=== PATIENT | male | born 1995 | race Caucasian/White ===

== ENCOUNTER 2017-08-11 07:58 | Inpatient (IN) | payer BC ==
--- NOTE | 2017-08-11 08:33 | EDM.PDOC ---
ED HPI GENERAL MEDICAL PROBLEM - General Chief Complaint: Abdominal Pain Stated Complaint: ABD PAIN Time Seen by Provider: 08/11/17 08:25 Source of Information: Reports: Patient, RN Notes Reviewed History Limitations: Reports: No Limitations - History of Present Illness INITIAL COMMENTS - FREE TEXT/NARRATIVE: 21-year-old gentleman presents to the emergency department today complaint of abdominal pain, he states the abdominal pain started last night he was able to finish his shift at work but had to leave early. Pain initially started in the epigastric region now it is migrating down to the right lower quadrant. Has had waves of nausea as well as waves of pain. No history of abdominal surgeries no fevers states he has had regular bowel movements ABDOMINAL Pain Score (Numeric/FACES): 7 - Related Data Allergies Allergy/AdvReac Type Severity Reaction Status Date / Time No Known Allergies Allergy Verified 08/11/17 08:12 Home Meds: Home Meds Naproxen Sodium 220 mg PO ASDIRECTED PRN 05/25/15 [History] Past Medical History Gastrointestinal History: Reports: GERD, Other (See Below) Other Gastrointestinal History: cyst on tail bone removed. ulcer Musculoskeletal History: Reports: Other (See Below) Other Musculoskeletal History: broken - Past Surgical History HEENT Surgical History: Reports: Oral Surgery Social & Family History - Family History Family Medical History: Noncontributory - Tobacco Use Smoking Status *Q: Current Every Day Smoker Years of Tobacco use: 4 Packs/Tins Daily: 0.5 - Caffeine Use Caffeine Use: Reports: Coffee, Energy Drinks, Soda - Recreational Drug Use Recreational Drug Use: No ED ROS GENERAL - Review of Systems Review Of Systems: See Below Constitutional: Denies: Fever, Chills Respiratory: Reports: No Symptoms Cardiovascular: Reports: No Symptoms GI/Abdominal: Reports: Abdominal Pain, Flatus, Nausea. Denies: Constipation, Diarrhea, Vomiting : Reports: No Symptoms ED EXAM, GI/ABD - Physical Exam Exam: See Below Exam Limited By: No Limitations General Appearance: Alert, WD/WN, No Apparent Distress Respiratory/Chest: No Respiratory Distress, Lungs Clear, Normal Breath Sounds, No Accessory Muscle Use, Chest Non-Tender Cardiovascular: Regular Rate, Rhythm, No Murmur GI/Abdominal Exam: Normal Bowel Sounds, Soft, No Organomegaly, No Distention, No Abnormal Bruit, No Mass, Tender (Right lower quadrant) Course - Vital Signs Last Recorded V/S: Last Vital Signs Temp 97.3 F 08/11/17 08:11 Pulse 103 H 08/11/17 08:11 Resp 14 08/11/17 08:11 BP 145/82 H 08/11/17 08:11 Pulse Ox 100 08/11/17 08:11 - Orders/Labs/Meds Orders: Active Orders 24 hr Category Date Time Status Peripheral IV Care [RC] . DIRECTED Care 08/11/17 08:53 Active UA W/MICROSCOPIC [URIN] Urgent Lab 08/11/17 08:52 Ordered HYDROmorphone/Normal Saline [Dilaudid FLEET SALESPERSON 15 MG in NS Med 08/11/17 11:30 Active 30 ML] 15 mg IV ASDIRECTED Iopamidol [Isovue-300 (61%)] Med 08/11/17 10:00 Active 132 ml IV . DIRECTED Lactated Ringers [Ringers, Lactated] 1,000 ml Med 08/11/17 09:00 Active IV ASDIRECTED Lactated Ringers [Ringers, Lactated] 1,000 ml Med 08/11/17 11:28 Active IV BOLUS Sodium Chloride 0.9% [Saline Flush] Med 08/11/17 08:52 Active 10 ml FLUSH ASDIRECTED PRN Sodium Chloride 0.9% [Saline Flush] Med 08/11/17 09:52 Active 10 ml FLUSH ONETIME PRN Peripheral IV Insertion Adult [OM.PC] Urgent Oth 08/11/17 08:52 Ordered Medication Orders Hydromorphone HCl (Dilaudid Framing Mechanic 15 Mg In Ns 30 Ml) 15 mg IV ASDIRECTED BOBBY; Protocol Lactated Ringer's (Ringers, Lactated) 1,000 mls @ 500 mls/hr IV ASDIRECTED BOBBY Last Admin: 08/11/17 09:03 Dose: 500 mls/hr Lactated Ringer's (Ringers, Lactated) 1,000 mls @ 250 mls/hr IV BOLUS ONE Stop: 08/11/17 15:27 Last Admin: 08/11/17 11:34 Dose: 250 mls/hr Iopamidol (Isovue-300 (61%)) 132 ml IV . DIRECTED BOBBY Last Admin: 08/11/17 09:58 Dose: 150 ml Sodium Chloride (Saline Flush) 10 ml FLUSH ASDIRECTED PRN PRN Reason: Keep Vein Open Last Admin: 08/11/17 09:03 Dose: 10 ml Sodium Chloride (Saline Flush) 10 ml FLUSH ONETIME PRN PRN Reason: PER RADIOLOGY PROTOCOL Last Admin: 08/11/17 09:58 Dose: 10 ml Labs: Laboratory Tests 08/11/17 08/11/17 08/11/17 Range/Units 08:52 09:01 09:01 WBC 10.8 (4.5-11.0) K/uL RBC 4.66 (4.30-5.90) M/uL Hgb 13.9 (12.0-15.0) g/dL Hct 38.6 L (40.0-54.0) % MCV 83 (80-98) fL MCH 30 (27-31) pg MCHC 36 (32-36) % Plt Count 247 (150-400) K/uL Neut % (Auto) 72 H (36-66) % Lymph % (Auto) 18 L (24-44) % Walsh % (Auto) 9 H (2-6) % Eos % (Auto) 0 L (2-4) % Baso % (Auto) 0 (0-1) % Sodium 140 (140-148) mmol/L Potassium 3.4 L (3.6-5.2) mmol/L Chloride 105 (100-108) mmol/L Carbon Dioxide 22 (21-32) mmol/L Anion Gap 16.4 H (5.0-14.0) mmol/L BUN 8 (7-18) mg/dL Creatinine 1.0 (0.8-1.3) mg/dL Est Cr Clr Drug Dosing 128.26 mL/min Estimated GFR (MDRD) > 60 (>60) Glucose 100 (74-106) mg/dL Calcium 9.0 (8.5-10.1) mg/dL Total Bilirubin 1.1 H (0.2-1.0) mg/dL AST 20 (15-37) U/L ALT 25 (12-78) U/L Alkaline Phosphatase 83 (46-116) U/L Total Protein 7.6 (6.4-8.2) g/dL Albumin 4.5 (3.4-5.0) g/dL Globulin 3.1 (2.3-3.5) g/dL Albumin/Globulin Ratio 1.5 (1.2-2.2) Lipase 68 L (73-393) U/L Urine Color Yellow Urine Appearance Clear Urine pH 9.0 H (4.5-8.0) Ur Specific [place] 1.010 (1.008-1.030) Urine Protein Negative (NEGATIVE) mg/dL Urine Glucose (UA) Normal (NEGATIVE) mg/dL Urine Ketones 15 H (NEGATIVE) mg/dL Urine Occult Blood Negative (NEGATIVE) Urine Nitrite Negative (NEGAITVE) Urine Bilirubin Negative (NEGATIVE) Urine Urobilinogen Normal (NORMAL) mg/dL Ur Leukocyte Esterase Negative (NEGATIVE) Urine RBC Not seen (0-5) Urine WBC Not seen (0-5) Ur Epithelial Cells Not seen Amorphous Sediment Not seen Urine Bacteria Not seen Urine Mucus Few Meds: Medications Generic Name Dose Route Start Last Admin Trade Name Freq PRN Reason Stop Dose Admin Hydromorphone HCl 15 mg 08/11/17 11:30 Dilaudid Framing Mechanic 15 Mg In Ns 30 Ml IV ASDIRECTED BOBBY Protocol Lactated Ringer's 1,000 mls @ 500 mls/hr 08/11/17 09:00 08/11/17 09:03 Ringers, Lactated IV 500 mls/hr ASDIRECTED BOBBY Administration Lactated Ringer's 1,000 mls @ 250 mls/hr 08/11/17 11:28 08/11/17 11:34 Ringers, Lactated IV 08/11/17 15:27 250 mls/hr BOLUS ONE Administration Iopamidol 132 ml 08/11/17 10:00 08/11/17 09:58 Isovue-300 (61%) IV 150 ml . DIRECTED BOBBY Administration Sodium Chloride 10 ml 08/11/17 08:52 08/11/17 09:03 Saline Flush FLUSH 10 ml ASDIRECTED PRN Administration Keep Vein Open Sodium Chloride 10 ml 08/11/17 09:52 08/11/17 09:58 Saline Flush FLUSH 10 ml ONETIME PRN Administration PER RADIOLOGY PROTOCOL Discontinued Medications Generic Name Dose Route Start Last Admin Trade Name Freq PRN Reason Stop Dose Admin Sodium Chloride 80 mls @ 3 mls/sec 08/11/17 09:52 08/11/17 09:58 Normal Saline IV 08/11/17 09:53 3 mls/sec ONETIME ONE Administration Ampicillin Sodium/Sulbactam 100 mls @ 200 mls/hr 08/11/17 11:16 08/11/17 11: 24 Sodium 3 gm/ Sodium Chloride IV 08/11/17 11:45 200 mls/hr ONETIME ONE Administration Aztreonam/Dextrose 1 gm/ 50 mls @ 100 mls/hr 08/11/17 11:24 Premix IV 08/11/17 11:45 ONETIME ONE Ketorolac Tromethamine 60 mg 08/11/17 08:49 08/11/17 08:59 Toradol IM 08/11/17 08:50 60 mg ONETIME ONE Administration Ketorolac Tromethamine 30 mg 08/11/17 08:54 08/11/17 08:59 Toradol IVPUSH 08/11/17 08:55 30 mg ONETIME ONE Administration Departure - Departure Time of Disposition: 11:47 Disposition: Admitted As Inpatient 66 Condition: Good Clinical Impression: Acute appendicitis Qualifiers: Acute appendicitis type: with localized peritonitis Qualified Code(s): K35.3 - Acute appendicitis with localized peritonitis - Discharge Information Referrals: Eriberto Harkins MD [Primary Care Provider] - Forms: ED Department Discharge - My Orders Last 24 Hours: My Active Orders 08/11/17 08:52 UA W/MICROSCOPIC [URIN] Urgent Sodium Chloride 0.9% [Saline Flush] 10 ml FLUSH ASDIRECTED PRN Peripheral IV Insertion Adult [OM.PC] Urgent 08/11/17 08:53 Peripheral IV Care [RC] . DIRECTED 08/11/17 09:00 Lactated Ringers [Ringers, Lactated] 1,000 ml IV ASDIRECTED 08/11/17 09:52 Sodium Chloride 0.9% [Saline Flush] 10 ml FLUSH ONETIME PRN 08/11/17 10:00 Iopamidol [Isovue-300 (61%)] 132 ml IV . DIRECTED 08/11/17 11:28 Lactated Ringers [Ringers, Lactated] 1,000 ml IV BOLUS 08/11/17 11:30 HYDROmorphone/Normal Saline [Dilaudid FLEET SALESPERSON 15 MG in NS 30 ML] 15 mg IV ASDIRECTED - Assessment/Plan Last 24 Hours: My Active Orders 08/11/17 08:52 UA W/MICROSCOPIC [URIN] Urgent Sodium Chloride 0.9% [Saline Flush] 10 ml FLUSH ASDIRECTED PRN Peripheral IV Insertion Adult [OM.PC] Urgent 08/11/17 08:53 Peripheral IV Care [RC] . DIRECTED 08/11/17 09:00 Lactated Ringers [Ringers, Lactated] 1,000 ml IV ASDIRECTED 08/11/17 09:52 Sodium Chloride 0.9% [Saline Flush] 10 ml FLUSH ONETIME PRN 08/11/17 10:00 Iopamidol [Isovue-300 (61%)] 132 ml IV . DIRECTED 08/11/17 11:28 Lactated Ringers [Ringers, Lactated] 1,000 ml IV BOLUS 08/11/17 11:30 HYDROmorphone/Normal Saline [Dilaudid FLEET SALESPERSON 15 MG in NS 30 ML] 15 mg IV ASDIRECTED Plan: Assessment Acuity = acute Site and laterality = appendicitis Etiology = unclear etiology Manifestations = nausea, abdominal pain Location of injury = Home Lab values = CBC unremarkable potassium low at 3.4 consistent hypokalemia, urine unremarkable CT scan describes early acute appendicitis Plan Discuss case with Dr. Loredo general surgery recommend starting antibiotics of Unasyn and Azactam plan for surgical intervention today This note was dictated using [employer] voice recognition software please call with any questions on syntax or grammar.
[2017-08-11] MEDS ORDERED: Ketorolac 60 MG/2 ML SDV IM ONE (08:49)
[2017-08-11] MEDS ORDERED: Sodium Chloride 0.9% 10 ML Syringe FLUSH PRN ×2 (08:52→09:52)
[2017-08-11] MEDS ORDERED: Ketorolac 30 MG/ML SDV IVPUSH ONE (08:54)
[2017-08-11] MEDS ORDERED: Lactated Ringers 1,000 ML IV SCH (09:00)
[2017-08-11] MEDS ORDERED: Sodium Chloride 0.9% 80 ML IV ONE (09:52)
[2017-08-11] MEDS ORDERED: Iopamidol 612 MG/ML 150 ML Bottle IV SCH (10:00)
--- NOTE | 2017-08-11 10:59 | CT ---
Abdomen Pelvis w Cont INDICATION: RLQ pain COMPARISON: None. FINDINGS: Wall thickening, mucosal hyperenhancement, and mild dilatation of the appendix. There is fa int surrounding inflammatory change. Findings are highly suspicious for early acute appendicitis. No abscess. Exam otherwise negative. IMPRESSION: Early acute appendicitis. No abscess. Findings discussed with Dr. Vidal by telephone at 10:55 AM on 08/11/2017.
--- NOTE | 2017-08-11 11:01 | CR ---
Abdomen 1V Upright INDICATION: pain FINDINGS: Nonspecific bowel gas pattern. No evidence for small bowel obstruction or free air.
[2017-08-11] MEDS ORDERED: Ampicillin/Sulbactam Na 3 GM in Sodium Chloride 0.9% 100 ML IV ONE (11:16)
[2017-08-11] MEDS ORDERED: Aztreonam/Dextrose-Water 1 GM in Premix Bag 1 BAG IV ONE (11:24)
[2017-08-11] MEDS ORDERED: Lactated Ringers 1,000 ML IV ONE (11:28)
[2017-08-11] MEDS ORDERED: HYDROmorphone/Normal Saline 15 MG/30 ML PCA IV SCH (11:30)
[2017-08-11] MEDS ORDERED: Naloxone 0.4 MG/ML SDV IV PRN ×2 (12:13→20:49)
[2017-08-11] MEDS ORDERED: HYDROmorphone/Normal Saline 15 MG/30 ML PCA IV PRN (12:13)
[2017-08-11] MEDS ORDERED: Propofol 200 MG/20 ML SDV ONE (12:16)
[2017-08-11] MEDS ORDERED: Ondansetron 4 MG/2 ML SDV ONE (12:16)
[2017-08-11] MEDS ORDERED: Neostigmine Methylsulfate 1 MG/ML 5 ML Syringe ONE (12:16)
[2017-08-11] MEDS ORDERED: Dexamethasone 4 MG/ML SDV ONE (12:16)
[2017-08-11] MEDS ORDERED: Succinylcholine 200 MG/10 ML MDV ONE (12:16)
[2017-08-11] MEDS ORDERED: fentaNYL 250 MCG/5 ML SDV ONE (12:16)
[2017-08-11] MEDS ORDERED: Glycopyrrolate 0.2 MG/ML 5 ML MDV ONE (12:16)
[2017-08-11] MEDS ORDERED: Rocuronium 50 MG/5 ML Vial ONE (12:16)
[2017-08-11] MEDS ORDERED: Bupivacaine 0.5%/EPINEPHrine 1:200,000 50 ML MDV ONE (12:48)
[2017-08-11] MEDS ORDERED: Lactated Ringers 1,000 ML ONE (15:15)
[2017-08-11] MEDS ORDERED: Ondansetron 4 MG/2 ML SDV IVPUSH PRN (16:42)
[2017-08-11] MEDS ORDERED: hydrOXYzine HCl 25 MG Tab PO PRN (16:43)
[2017-08-11] MEDS ORDERED: hydrOXYzine HCl 100 MG/2 ML SDV IM PRN (16:43)
[2017-08-11] MEDS: Dextrose 5%-Lactated Ringers 1,000 ML IV SCH (17:52)
[2017-08-11] MEDS: Ampicillin/Sulbactam Na 3 GM in Sodium Chloride 0.9% 100 ML IV SCH ×2 (17:52→23:10)
[2017-08-11] MEDS ORDERED: Morphine PF 150 MG/30 ML PCA Syringe IV PRN ×2 (20:49→21:41)
[2017-08-12] MEDS: Dextrose 5%-Lactated Ringers 1,000 ML IV SCH ×3 (00:50→19:13)
[2017-08-12] MEDS: Ampicillin/Sulbactam Na 3 GM in Sodium Chloride 0.9% 100 ML IV SCH ×3 (05:20→17:33)
[2017-08-12] MEDS ORDERED: Benzocaine/Cetylpyridinium/Menthol Lozenge MUCMEM SCH (09:00)
[2017-08-12] MEDS ORDERED: Benzocaine/Cetylpyridinium/Menthol Lozenge MUCMEM PRN (10:00)
[2017-08-12] MEDS: Acetaminophen/oxyCODONE 325-5 MG Tab PO PRN ×2 (18:08→22:38)
[2017-08-13] MEDS: Ampicillin/Sulbactam Na 3 GM in Sodium Chloride 0.9% 100 ML IV SCH ×2 (03:27→05:54)
[2017-08-13] MEDS: Acetaminophen/oxyCODONE 325-5 MG Tab PO PRN ×2 (03:28→08:29)
[2017-08-13] MEDS: Dextrose 5%-Lactated Ringers 1,000 ML IV SCH (05:52)
[2017-08-13 08:09] VITALS: BP 118/59
--- NOTE | 2017-08-13 08:42 | DISCH ---
ADMISSION DIAGNOSIS: Acute appendicitis. DISCHARGE DIAGNOSIS: Laparoscopic appendectomy for acute appendicitis on 08/11/2017. HISTORY: Julio presented to the emergency room with right lower quadrant abdominal pain. After preoperative evaluation and discussion of possible risks and possible complications, he wished to proceed with surgical procedure. HOSPITAL COURSE: Julio had his surgery on 08/11/2017. He had no operative complications. On postop day #1, he was started on a full liquid diet and oral pain medication. His activity was good, pain was well managed, and he was able to be discharged to home on postop day #2. PHYSICAL EXAMINATION: GENERAL: Julio is a 21-year-old male. VITAL SIGNS: Height is 6 feet, weight is 187 pounds. TPR is 99.4, 70, 18. Blood pressure 118/59. HEENT: Negative. NECK: Supple. HEART: Regular rate and rhythm. LUNGS: Clear. ABDOMEN: Dressings dry and intact. Abdominal binder is on. EXTREMITIES: Without peripheral edema. DISPOSITION: Discharged to home. CONDITION: Stable and improving. FOLLOWUP APPOINTMENT: Rocío Obrien PA-C, on 08/21/2017, at 9:00 a.m. HOME MEDICATIONS: 1. Percocet 5/325 mg 1 to 2 every 4 hours p.r.n. pain, #40. 2. Colace 100 mg oral twice daily, #60. 3. Milk of magnesia 30 mL, 2 were sent home with the patient to take 1 today and then repeat tomorrow if no bowel movement. 4. He may resume Naproxen Sodium p.r.n. for pain. DISCHARGE INSTRUCTIONS: 1. Diet: Usual diet as tolerated. Drink 8 to 10 glasses of water a day. 2. No lifting over 10 pounds for 2 weeks. 3. Walk 6 times daily inside your home. 4. Driving: Do not drive on pain medication. 5. May shower. 6. Notify provider if any fever, nausea, or vomiting. 7. Keep site clean and dry. 8. Wear abdominal binder for 2 weeks and then as tolerated. 9. Use incentive spirometer 10 times every hour while awake for 1 week.
--- NOTE | 2017-08-13 09:23 | PN ---
DATE OF SERVICE: 08/12/2017 SUBJECTIVE: Julio is postop day 1 following a laparoscopic appendectomy. He states his pain is controlled. He has been up, ambulating. Vital signs stable. Oral intake 120 mL. REVIEW OF SYSTEMS: Remainder of review of systems negative for any pertinent positives and negatives. OBJECTIVE: GENERAL: Julio is a pleasant 21-year-old male. He is alert and orientated. VITAL SIGNS: TPR is 97,172, 18. Blood pressure 109/55. HEENT: Negative. NECK: Supple. HEART: Regular rate and rhythm. LUNGS: Clear. ABDOMEN: Dressings dry and intact. Abdominal binder is on. EXTREMITIES: Without peripheral edema. ASSESSMENT: Laparoscopic appendectomy. Rohan Loredo MD, 08/11/2017. PLAN: 1. Decrease IV to 100 mL per hour. 2. Full liquid diet. 3. Continue CLINICAL REHAB LIAISON. 4. In a.m., we will advance diet, change to oral pain medication and if he does well, will be able to be discharged to home. Rocío Obrien PA-C /[id number]
[2017-08-13] MEDS ORDERED: Magnesium Hydroxide 400 MG/5 ML Susp 30 ML Cup PO ONE (09:42)
--- NOTE | 2017-08-19 10:50 | OR ---
DATE OF PROCEDURE: 08/11/2017 PREOPERATIVE DIAGNOSIS: Acute appendicitis. POSTOPERATIVE DIAGNOSIS: Acute suppurative appendicitis. OPERATIVE PROCEDURE: Laparoscopic appendectomy ([id number]). ANESTHESIA: General. CURER ACID DRUM: Rocío Obrien PA-C. INDICATIONS FOR PROCEDURE: This 21-year-old presenting with a picture of an acute appendicitis. After preoperative evaluation and discussion, he wished to proceed with a laparoscopic or if necessary open appendectomy. Potential risks including bleeding, infection, leaks from various GI tract closures, possible need for a more extensive procedure based on operative findings were all gone over, and the patient wishes to proceed. DETAILS OF PROCEDURE: The patient was taken to the operating room and after being placed in the supine position, a general endotracheal anesthetic was induced. A Gunter catheter was inserted, and the abdomen was prepped and draped. Three fingerbreadths superior into the left of the umbilicus, a transverse incision was made and the peritoneal cavity entered under direct vision with an Optiview trocar and inflated to 15 mmHg pressure of CO2. Laparoscope was then reinserted. No underlying trocar insertion site injuries were seen. Following this, a 12 mm trocar was placed in the right upper quadrant as well as left lower quadrant, and the lower abdomen was examined. The patient was noted to have a well-defined acute appendicitis. This was without perforation or any periappendiceal fluid collection. The base of appendix was then from the mesentery, and the appendix was then divided flush with the cecum with a ARAVIND purple load. Mesentery was then divided with Harmonic scalpel, and the specimen delivered through the left lateral trocar site, as it was pulled into the trocar. The trocar was removed so as to avoid any contamination of the trocar site with removal of the appendix. At that point, the dissection was inspected. The appendiceal stump staple line was then reinforced with some fibrin sealant. At that point, no further problems were noted. The trocars were removed. The patient was felt not to be needing a drain. Fascia at the trocar site was closed with 0 Vicryl stitch and skin with 4- 0 Vicryl skin stitch. Dressing was applied. The patient was taken to the recovery room in a satisfactory condition. Physician bricklayer's assistant, Rocío Obrien, played an essential role in assisting in this case, helping to position the patient, retract structures as needed, as well as suturing and cutting sutures when indicated. Her presence improved patient safety and decreased the operative time. Rohan Loredo MD /[id number]
== END 2017-08-13 10:30 | disposition home or self-care (01) | DRG 225 ==
LOC: JP.ED 07:58 → JP.2SS 12:00
PROVIDERS: ADMIT Surgery; ATTEND Surgery
PROC: 0DTJ4ZZ Resection of Appendix, Percutaneous Endoscopic Approach (ICD-10-PCS; principal; 2017-08-11)
DX: K35.3 Acute appendicitis with localized peritonitis (principal); K21.9 Gastro-esophageal reflux disease without esophagitis; F17.210 Nicotine dependence, cigarettes, uncomplicated; E87.6 Hypokalemia; Z79.899 Other long term (current) drug therapy
CPT/HCPCS: 36415; 74018; 74018-26; 74177; 74177-26; 80053; 81001; 83690; 85025; 88304; 94762; 96361; 96365; 96372; 96375; 99285-25; A9270-GY; J0295; J0330; J1100; J1170; J1885; J2270; J2405; J2704; J2710; J3010; J3490; J7030; J7042; J7050; J7120

== ENCOUNTER 2021-11-12 01:01 | Emergency (ER) | payer BC ==
[2021-11-12 01:36] VITALS: BP 139/93; PULSE 72
[2021-11-12] MEDS ORDERED: Alum Hydrox/Mag Hydrox/Simeth 15 ML, Lidocaine 2% 15 ML PO ONE ×2 (01:38)
[2021-11-12 02:03] LABS: ESTIMATED GFR 106 mL/min (>60)
[2021-11-12] MEDS ORDERED: fentaNYL 50 MCG/ML SDV IVPUSH ONE (02:06)
[2021-11-12] MEDS ORDERED: Sodium Chloride 0.9% 1,000 ML IV SCH (02:30)
[2021-11-12] MEDS ORDERED: Iopamidol 612 MG/ML 100 ML Bottle IV ONE (02:34)
[2021-11-12] MEDS ORDERED: Sodium Chloride 0.9% 100 ML IV ONE (02:34)
== END 2021-11-12 03:21 | disposition home or self-care (01) ==
LOC: JP.ED 01:01
DX: R10.11 Right upper quadrant pain (principal); F17.210 Nicotine dependence, cigarettes, uncomplicated; Z88.6 Allergy status to analgesic agent; Z90.49 Acquired absence of other specified parts of digestive tract
CPT/HCPCS: 36415; 74177; 80053; 83690; 85025; 96374; 99284; A9270; J3010; J3490; Q9967

== ENCOUNTER → 2021-12-27 | Day surgery (SDC) | payer BC ==
[~2021-12-27] MED LIST: Acetaminophen 500 MG Tab PO ONE; Bupivacaine 0.5% 50 ML MDV ONE; DEXAMETHASONE INJECT ONE; Dexamethasone 4 MG/ML SDV ONE; Dextrose 5%-Lactated Ringers 1,000 ML IV SCH; EPINEPHRINE INJECT ONE; Glycopyrrolate 0.2 MG/ML 5 ML MDV ONE; Indocyanine Green 25 MG SDV ONE; Ketamine 22 MG in Sodium Chloride 0.9% 19.78 ML IV SCH; Ketamine 500 MG/5 ML MDV IV SCH; Ketorolac 30 MG/ML SDV ONE; Lidocaine 1% with EPINEPHrine 1:100,000 50 ML MDV ONE; Neostigmine Methylsulfate 1 MG/ML 5 ML Syringe ONE; Ondansetron 4 MG/2 ML SDV ONE; Propofol 200 MG/20 ML SDV ONE; ROPIVACAINE INJECT ONE; Rocuronium 50 MG/5 ML Vial ONE; SODIUM CHLORIDE 0.9% INJECT ONE; Scopolamine 1.5 MG Transdermal Patch TOP ONE; Succinylcholine 200 MG/10 ML MDV ONE; cefOXitin 2 GM in Sodium Chloride 0.9% 50 ML IV ONE; fentaNYL 100 MCG/2 ML SDV ONE
[2022-01-22 13:32] LABS: ESTIMATED GFR 125 mL/min (>60)
== END ==
LOC: JP.SDS 06:00
PROVIDERS: ATTEND Surgery
DX: K80.10 Calculus of gallbladder with chronic cholecystitis without obstruction (principal); K42.0 Umbilical hernia with obstruction, without gangrene; K21.9 Gastro-esophageal reflux disease without esophagitis; F17.200 Nicotine dependence, unspecified, uncomplicated; Z88.5 Allergy status to narcotic agent; Z79.899 Other long term (current) drug therapy
CPT/HCPCS: 36415; 47562; 80053; 85027; 88304; A9270; J0171; J0330; J0694; J1100; J1885; J2405; J2704; J2710; J2795; J3010; J3490; J7121